=== PATIENT | male | born 1975 | race Caucasian/White ===

== ENCOUNTER 2017-04-29 21:54 | Emergency (ER) | payer BC, OTHER ==
[2017-04-29 22:04] VITALS: BP 160/95
[2017-04-29] MEDS ORDERED: Lactated Ringers 1,000 ML IV ONE (22:45)
[2017-04-29] MEDS ORDERED: diphenhydrAMINE 50 MG/ML SDV IVPUSH ONE (22:45)
[2017-04-29] MEDS ORDERED: Ondansetron 4 MG/2 ML SDV IVPUSH ONE (22:45)
--- NOTE | 2017-04-29 22:45 | EDM.PDOC ---
ED HPI GENERAL MEDICAL PROBLEM - General Chief Complaint: Headache Stated Complaint: headache nausea Time Seen by Provider: 04/29/17 22:38 - History of Present Illness INITIAL COMMENTS - FREE TEXT/NARRATIVE: 41-year-old male presents emergency room with a severe headache. Patient does not normally get headaches is probably been 15-20 years since the patient had a headache. This is by far the most severe headache is ever had. This started about an hour and a half ago very sudden onset started on in the base of his head and his neck and his extended up around his head worse on the right side compared to the left side. Patient does not have a family history of headaches or family history of intracranial hemorrhage. Past medical history is otherwise unremarkable patient denies any fevers or chills he's had some nausea and photophobia with this Headache Pain Score (Numeric/FACES): 10 - Related Data Allergies Allergy/AdvReac Type Severity Reaction Status Date / Time No Known Allergies Allergy Verified 04/29/17 22:04 Home Meds: Home Meds Escitalopram Oxalate [Lexapro] 40 mg PO DAILY 04/29/17 [History] Simvastatin [Zocor] 10 mg PO BEDTIME 04/29/17 [History] Past Medical History - Past Health History Medical/Surgical History: Denies Medical/Surgical History Cardiovascular History: Reports: High Cholesterol Musculoskeletal History: Reports: Back Pain, Chronic Psychiatric History: Reports: Depression Social & Family History - Tobacco Use Smoking Status *Q: Current Every Day Smoker Years of Tobacco use: 28 Packs/Tins Daily: 1 - Alcohol Use Days Per Week of Alcohol Use: 0 - Recreational Drug Use Recreational Drug Use: No ED ROS GENERAL - Review of Systems Review Of Systems: See Below Constitutional: Reports: No Symptoms. Denies: Fever, Chills HEENT: Reports: Eye Pain (Photophobia), Vision Change (Photophobia), Other. Denies: Ear Pain, Hearing Loss, Rhinitis, Sinus Problem Respiratory: Reports: No Symptoms Cardiovascular: Reports: No Symptoms GI/Abdominal: Reports: Nausea. Denies: Abdominal Pain, Constipation, Diarrhea, Vomiting : Reports: No Symptoms Musculoskeletal: Reports: Neck Pain Neurological: Reports: Headache. Denies: Confusion, Dizziness, Numbness, Pre- Existing Deficit, Seizure, Syncope Psychiatric: Reports: No Symptoms - Physical Exam Exam: See Below Exam Limited By: No Limitations General Appearance: Alert Eye Exam: Bilateral Eye: EOMI, Normal Inspection, PERRL Ears: Normal External Exam, Normal Canal, Hearing Grossly Normal, Normal TMs Nose: Normal Inspection, Normal Mucosa, No Blood Throat/Mouth: Normal Inspection, Normal Lips, Normal Teeth, Normal Gums, Normal Oropharynx, Normal Voice, No Airway Compromise Head Exam: Atraumatic, Normocephalic Neck: Normal Inspection, Supple, Non-Tender, Full Range of Motion Respiratory/Chest: No Respiratory Distress, Lungs Clear, Normal Breath Sounds, No Accessory Muscle Use, Chest Non-Tender Cardiovascular: Normal Peripheral Pulses Rectal (Males) Exam: Normal Exam, Normal Rectal Tone, Prostate Normal Neuro Exam (Abbreviated): Alert, Oriented, CN II-XII Intact, Normal Cognition, Normal Gait, Normal Reflexes, No Motor/Sensory Deficits, Other (Numerous 2 through 12 grossly intact all muscle groups the upper and lower extremities recall appropriate bilaterally deep tendon reflexes the brachial radialis and patella tendons are equal and appropriate bilaterally cerebellar testing including finger to nose and dragging his foot down the opposing villarreal bilaterally is all intact) Back Exam: Normal Inspection, Full Range of Motion. No: CVA Tenderness (L), CVA Tenderness (R) Extremities: Normal Inspection, Normal Range of Motion, Non-Tender, No Pedal Edema, Normal Capillary Refill Course - Vital Signs Last Recorded V/S: Last Vital Signs Temp 36.8 C 04/29/17 22:01 Pulse 65 04/29/17 22:01 Resp 16 04/29/17 22:01 BP 160/95 H 04/29/17 22:01 Pulse Ox 100 04/29/17 22:01 - Orders/Labs/Meds Orders: Active Orders 24 hr Category Date Time Status Head wo Cont [CT] Stat Exams 04/29/17 22:47 Taken Meds: Medications Discontinued Medications Generic Name Dose Route Start Last Admin Trade Name Freq PRN Reason Stop Dose Admin Diphenhydramine HCl 50 mg 04/29/17 22:45 04/29/17 22:52 Benadryl IVPUSH 04/29/17 22:46 50 mg ONETIME ONE Administration Lactated Ringer's 1,000 mls @ 999 mls/hr 04/29/17 22:45 04/29/17 22:52 Ringers, Lactated IV 04/29/17 23:45 999 mls/hr .BOLUS ONE Administration Ondansetron HCl 4 mg 04/29/17 22:45 04/29/17 22:52 Zofran IVPUSH 04/29/17 22:46 4 mg ONETIME ONE Administration - Re-Assessments/Exams Free Text/Narrative Re-Assessment/Exam: 04/30/17 01:02 Patient's headache is minimal at this time he received a liter of LR 50 mg of Benadryl and 4 mg of Zofran because of the onset of his headache he did have a CT that was unremarkable. Did discuss LP but the patient does not wish to pursue this he would like to go home and get some rest. Departure - Departure Time of Disposition: 01:03 Disposition: Home, Self-Care 01 Clinical Impression: Headache - Discharge Information Referrals: PCP,Not In Area [Primary Care Provider] - Forms: ED Department Discharge Additional Instructions: Return to the emergency room with any questions problems worsening symptoms. Follow-up in the Hospital clinic at the end of this week if needed for recheck. [phone] - My Orders Last 24 Hours: My Active Orders 04/29/17 22:47 Head wo Cont [CT] Stat - Assessment/Plan Last 24 Hours: My Active Orders 04/29/17 22:47 Head wo Cont [CT] Stat
--- NOTE | 2017-04-30 08:12 | CT ---
Head CT Technique: Multiple axial sections through the brain were obtained. Intravenous contrast was not utilized. Comparison: Prior head CT exam of 09/27/14. Findings: Ventricles along with basal cisterns and sulci over the convexities are within normal limits for the patient's age. No abnormal parenchymal densities are seen. No evidence of intracranial hemorrhage. No midline shift or mass effect is seen. Bone window settings were reviewed which show no discrete calvarial abnormality. Visualized sinuses are clear. Impression: 1. No abnormality is identified on noncontrast head CT study. No significant change is seen from previous study. Diagnostic code #1 Agree with preliminary report issued by [facility] ([facility] preliminary report dictated on 04/30/17, 1:05 AM Central Time)
== END 2017-04-30 01:18 | disposition home or self-care (01) ==
LOC: JD.ED 21:54
DX: R51 Headache (principal); F17.210 Nicotine dependence, cigarettes, uncomplicated; E78.00 Pure hypercholesterolemia, unspecified; F32.9 Major depressive disorder, single episode, unspecified; Z79.899 Other long term (current) drug therapy
CPT/HCPCS: 70450; 96361; 96374; 96375; 99284; J1200; J2405; J7120; 99283